=== PATIENT | male | born 1975 | race Caucasian/White ===

== ENCOUNTER → 2017-11-29 10:33 | Outpatient (CLI) | payer OTHER | END | disposition home or self-care (01) | LOC: D.RAD 11-26 10:00 | DX: Z02.71 Encounter for disability determination (principal) ==

== ENCOUNTER → 2018-01-14 16:03 | Outpatient (CLI) | payer MEDICAID | END | disposition home or self-care (01) | LOC: D.MRI 16:03 | DX: M54.15 Radiculopathy, thoracolumbar region (principal) ==